=== PATIENT | female | born 1945 | race Caucasian/White ===

== ENCOUNTER 2017-12-04 08:10 | Day surgery (SDC) | payer OTHER ==
[~2017-12-04] VITALS: Ht 167.6 cm; Wt 78.1 kg
[~2017-12-04 08:10] MED LIST: PRILOSEC20 MG PO; VITAMIN B12 PO
[2017-12-04 09:09] VITALS: BP 130/62
[2017-12-04 11:32] VITALS: BP 154/70
[2017-12-04 12:00] VITALS: BP 152/68
== END 2017-12-04 12:05 | disposition home or self-care (01) ==
LOC: SDC 08:10
DX: H43.811 Vitreous degeneration, right eye (principal); H43.391 Other vitreous opacities, right eye; K21.9 Gastro-esophageal reflux disease without esophagitis; I05.8 Other rheumatic mitral valve diseases; Z88.0 Allergy status to penicillin; Z88.6 Allergy status to analgesic agent; Z88.8 Allergy status to other drugs, medicaments and biological substances; Z91.041 Radiographic dye allergy status; Z85.42 Personal history of malignant neoplasm of other parts of uterus
CPT/HCPCS: J0690; J3300